=== PATIENT | male | born 1990 | race African-American/Black ===

== ENCOUNTER 2017-03-02 12:22 | Emergency (ER) | payer OTHER ==
[~2017-03-02] VITALS: Ht 170.2 cm; Wt 72.6 kg
--- NOTE | 2017-03-02 13:45 | ED GENERAL ADULT ---
History of Present Illness General Chief Complaint: Skin Rash/ Abcess Stated Complaint: ABCESS RECTAL Source: patient Exam Limitations: no limitations Vital Signs & Intake/Output Vital Signs & Intake/Output Vital Signs Date Time Temp Pulse Resp B/P B/P Pulse O2 O2 Flow FiO2 Mean Ox Delivery Rate 03/02 1455 98.2 80 22 129/86 99 Room Air 03/02 1325 Room Air 03/02 1226 98.0 83 16 136/84 98 Room Air Allergies Coded Allergies: NO KNOWN ALLERGIES (02/08/11) Triage Note: PT STATES HE HAS A RECTAL ABCESS THAT STARTED 4 DAYS AGO. Triage Nurses Notes Reviewed? yes HPI: 26-year-old otherwise healthy male presenting with painful mass to buttocks 4 days. Denies fevers or trauma to the area. Is not tried anything for pain relief. (PATRIZIA BOWENS PA-C) Reconcile Medications Cephalexin (Keflex) 500 MG CAPSULE 1 CAP PO 4 TIMES/DAY cellulitis (BREANNA OQUENDO,JACQUI Zarate) Past History Travel History Traveled to [place] past 21 day No Medical History Any Pertinent Medical History? none Surgical History Surgical History: non-contributory Psychosocial History What is your primary language Occitan Tobacco Use: Never used ETOH Use: occasional use Illicit Drug Use: denies illicit drug use Family History Hx Contributory? No (PATRIZIA BOWENS PA-C) Review of Systems Review of Systems Constitutional: Reports: no symptoms. Respiratory: Reports: no symptoms. Cardiovascular: Reports: no symptoms. GI: Reports: no symptoms. Genitourinary: Reports: no symptoms. Skin: Reports: lumps (mass to buttock). (PATRIZIA BOWENS PA-C) Physical Exam Physical Exam General Appearance: well developed/nourished, no apparent distress, awake, comfortable Head: atraumatic Respiratory: normal breath sounds, lungs clear Cardiovascular: regular rate/rhythm, normal peripheral pulses Rectal: on exam there is an indurated mass to the superior aspect of the gluteal cleft that is mildly tender to palpation with trace amount of surrounding erythema Core Measures ACS in differential dx? No CVA/TIA Diagnosis: No Severe Sepsis Present: No Septic Shock Present: No (PATRIZIA BOWENS PA-C) Progress Differential Diagnoses I considered the following diagnoses in my evaluation of the patient: [Abscess versus cellulitis] Plan of Care: Current Medications Sig/Elias Start time Last Medication Dose Stop Time Status Admin Cephalexin 500 MG ONCE ONE 03/02 1500 AC 03/02 (Keflex 500MG Cap) 03/02 1501 1459 Ibuprofen 600 MG ONCE ONE 03/02 1500 AC 03/02 (Motrin) 03/02 1501 1459 Exam consistent with abscess to superior aspect of gluteal cleft First attempted to needle aspirate the area with no pus aspiration Second attempted to I&D, attempted both wound irrigation and de-loculation with hemostat, still with no drainage of any pus, wound packing was left in the event of future drainage. We'll place patient on a course of Keflex and have him follow up in 2 days for wound check. (PATRIZIA BOWENS PA-C) Initial ED EKG: none (PATRIZIA BOWENS PA-C) Departure Departure Disposition: HOME OR SELF CARE Condition: Stable Clinical Impression Primary Impression: Abscess Referrals: PATIENT HAS NO PRIMARY CARE DR (PCP/Family) Additional Instructions: Take 500 mg of Keflex by mouth 4 times daily for 7 days. Follow-up for wound recheck in 2 days. Return to the ED for any new or worsening symptoms. Departure Forms: Customer Survey General Discharge Information (PATRIZIA BOWENS PA-C) Departure Prescriptions: Current Visit Scripts Cephalexin (Keflex) 1 CAP PO 4 TIMES/DAY 7 Days PA/CONTRACTING OFFICER Co-Sign Statement Statement: ED Attending supervision documentation- [] I saw and evaluated the patient. I have also reviewed all the pertinent lab results and diagnostic results. I agree with the findings and the plan of care as documented in the PA's/CONTRACTING OFFICER's documentation. [X] I have reviewed the ED Record and agree with the PA's/CONTRACTING OFFICER's documentation. [] Additions or exceptions (if any) to the PAs/CONTRACTING OFFICER's note and plan are summarized below: [] (BREANNA OQUENDO,JACQUI Zarate) Procedures Incision and Drainage Site: Gluteal cleft Blade Size: 11 I & D Procedure: Yes: betadine prep. Progress: First attempted to needle aspirate the area with 18g needle, no pus aspiration. Second attempted to I&D, attempted both wound irrigation and de-loculation with hemostat, still with no drainage of any pus, wound packing was left in the event of future drainage. (PATRIZIA BOWENS PA-C) Critical Care Note Critical Care Note Critical Care Time: non-applicable (KWAN SLOAN,PATRIZIA)
[2017-03-02 14:55] VITALS: BP 129/86
[2017-03-02] MEDS ORDERED: KEFLEX500 M1 PO (14:59)
== END 2017-03-02 15:05 ==
LOC: ERH 12:22
DX: L02.31 Cutaneous abscess of buttock (principal)

== ENCOUNTER 2017-03-04 18:21 | Emergency (ER) | payer OTHER ==
[~2017-03-04] VITALS: Ht 170.2 cm; Wt 72.6 kg
[~2017-03-04 18:21] MED LIST: KEFLEX500 M1 PO
[2017-03-04] MEDS ORDERED: PROBIOTIC1 EACH PO (19:48)
--- NOTE | 2017-03-04 19:49 | ED ANIMAL BITE/WOUND CHECK ---
History of Present Illness General Chief Complaint: General Adult Stated Complaint: PT HERE TO CHECK THE ABSCESS Source: patient, old records Exam Limitations: no limitations Vital Signs & Intake/Output Vital Signs & Intake/Output Vital Signs Date Time Temp Pulse Resp B/P B/P Pulse O2 O2 Flow FiO2 Mean Ox Delivery Rate 03/04 2012 98.0 88 18 137/84 98 Room Air 03/04 1958 Room Air 03/044 98.1 110 16 142/88 96 Room Air Allergies Coded Allergies: NO KNOWN ALLERGIES (02/08/11) Reconcile Medications Cephalexin (Keflex) 500 MG CAPSULE 1 CAP PO 4 TIMES/DAY cellulitis Lactobacillus Acidophilus (Probiotic) (Unknown Strength) CAPSULE (Unknown Dose ) PO DAILY PROBIOTIC (Reported) Triage Note: PT WAS SEEN HERE FRIDAY WITH ABCESS TO HIS TAILBONE AND WAS TOLD TO RETURN TODAY FOR WOUND CHECK Triage Nurses Notes Reviewed? yes Onset: Abrupt Duration: day(s): (2) Timing: single episode today Injury Environment: home Modifying Factors: Improves With: rest. HPI: 26-year-old male with no past medical history presents for a scheduled wound check. he was seen for incision and drainage of a possible abscess or pilonidal cyst at the superior aspect of the gluteal clefT 2 days ago. he was started on antibiotics has been taking THESE. He reports that he is feeling much better after after incision and drainage. He reports mild pain with palpation of the area and sitting down. No fevers, abdominal pain, blood in stool, numbness tingling, or low back pain. He reports a very small amount of discharge from the area. No other associated symptoms (SAMANTHA KELLER PA-C) Past History Travel History Traveled to [place] past 21 day No Medical History Any Pertinent Medical History? see below for history Surgical History Surgical History: non-contributory Psychosocial History What is your primary language Georgian Tobacco Use: Never used ETOH Use: occasional use Illicit Drug Use: denies illicit drug use Family History Hx Contributory? No (SAMANTHA KELLER PA-C) Review of Systems Review of Systems Constitutional: Reports: no symptoms. EENTM: Reports: no symptoms. Respiratory: Reports: no symptoms. Cardiovascular: Reports: no symptoms. GI: Reports: no symptoms. Genitourinary: Reports: no symptoms. Musculoskeletal: Reports: no symptoms. Skin: Reports: see HPI. Neurological/Psychological: Reports: no symptoms. Hematologic/Endocrine: Reports: no symptoms. Immunologic/Allergic: Reports: no symptoms. All Other Systems: Reviewed and Negative (SAMANTHA KELLER PA-C) Physical Exam Physical Exam General Appearance: well developed/nourished, no apparent distress, alert, awake Head: atraumatic, normal appearance Eyes: Bilateral: normal appearance, PERRL, EOMI. Ears, Nose, Throat: normal pharynx, normal ENT inspection, hearing grossly normal Neck: normal inspection, supple, full range of motion Respiratory: normal breath sounds, chest non-tender, no respiratory distress, lungs clear Cardiovascular: regular rate/rhythm, normal peripheral pulses Peripheral Pulses: 2+ tibialis posterior (R), 2+ tibialis posterior (L) Gastrointestinal: normal bowel sounds, soft, non-tender, no organomegaly Back: normal inspection, normal range of motion, no vertebral tenderness Extremities: normal range of motion Neurologic/Psych: no motor/sensory deficits, awake, alert, oriented x 3, normal gait Reflexes: 2+: knee (R), knee (L). Skin: intact, normal color, warm/dry Lymphatic: no anterior cervical richie Comments: There is a 1 cm diameter area of erythema and induration located at the gluteal cleft. There is no discharge coming from the previously incised area. Exam is improved from previous. (SAMANTHA KELLER PA-C) Progress Differential Diagnosis: abscess, cellulitis, PILONIDAL CYST, PILONIDAL ABSCESS Plan of Care: Abscesses healing well and patient is tolerating antibiotics. Culture still pending. Patient will be discharged home to continue antibiotics and apply warm compresses. She is nontoxic appearing is in agreement with the plan. (SAMANTHA KELLER PA-C) Departure Departure Disposition: HOME OR SELF CARE Condition: Stable Clinical Impression Primary Impression: Abscess Referrals: PATIENT HAS NO PRIMARY CARE DR (PCP/Family) Additional Instructions: Continue to take diuretics as directed for the full course. Apply warm compresses to the area several times per day. Tylenol or Advil as needed for pain follow-up with her primary care doctor this Friday as scheduled. Return to emergency Department with any concerns. Departure Forms: Customer Survey General Discharge Information (SAMANTHA KELLER PA-C) PA/INPATIENT CODER Co-Sign Statement Statement: ED Attending supervision documentation- [] I saw and evaluated the patient. I have also reviewed all the pertinent lab results and diagnostic results. I agree with the findings and the plan of care as documented in the PA's/INPATIENT CODER's documentation. [X] I have reviewed the ED Record and agree with the PA's/INPATIENT CODER's documentation. [] Additions or exceptions (if any) to the PAs/INPATIENT CODER's note and plan are summarized below: [] (BREANNA OQUENDO,JACQUI Zarate)
[2017-03-04 20:12] VITALS: BP 137/84
== END 2017-03-04 20:13 ==
LOC: ERH 18:21
DX: Z48.01 Encounter for change or removal of surgical wound dressing (principal)
CPT/HCPCS: 99281